=== PATIENT | female | born 1975 | race Asian ===

== ENCOUNTER 2017-12-28 21:38 | Emergency (ER) | payer MEDICAID ==
[~2017-12-28] VITALS: Ht 152.4 cm; Wt 45.4 kg
[2017-12-28 21:53] VITALS: BP 95/57
--- NOTE | 2017-12-28 22:05 | NUR ---
PT TO ER BED 10 VIA W/C
--- NOTE | 2017-12-28 22:10 | NUR ---
PATIENT PRESENTS TO ED WITH FLU LIKE SYMPTOMS . PT DENIES N/V/D; SKIN IS PINK/WARM/DRY; AAOX4 WITH EVEN AND STEADY GAIT; LUNGS CLEAR BL; HR EVEN AND REGULAR; PT DENIES ANY CP, SOB, OR COUGH AT THIS TIME; PATIENT STATES PAIN OF 0/10 AT THIS TIME; VSS; PATIENT POSITIONED FOR COMFORT; HOB ELEVATED; BEDRAILS UP X2; BED DOWN. ER MD MADE AWARE OF PT STATUS.
--- NOTE | 2017-12-28 22:10 | NUR ---
Patient being evaluated by physician at bedside.
--- NOTE | 2017-12-28 22:20 | NUR ---
Patient discharged with v/s stable. Written and verbal after care instructions given and explained. Patient alert, oriented and verbalized understanding of instructions. Ambulatory with steady gait. All questions addressed prior to discharge. ID band removed. Patient advised to follow up with PMD. Rx of AUGMENTIN 875MG given. Patient educated on indication of medication including possible reaction and side effects. Opportunity to ask questions provided and answered.
== END 2017-12-28 22:20 | disposition home or self-care (01) ==
LOC: MED 21:38
DX: J06.9 Acute upper respiratory infection, unspecified (principal)
CPT/HCPCS: 99283